=== PATIENT | male | born 1990 | race Caucasian/White ===

== ENCOUNTER 2023-06-18 12:30 | Emergency (ER) | payer MEDICAID, SELFPAY ==
[2023-06-18 13:50] VITALS: BP 144/91; PULSE 77; RESP 20; TEMP 36.6; O2SAT 98
--- NOTE | 2023-06-18 14:44 | ED.GENADULT ---
HPI - General Adult General Chief complaint: Nausea/Vomiting/Diarrhea Stated complaint: Sinus Source: patient Mode of arrival: ambulatory Limitations: no limitations History of Present Illness HPI narrative: Pt presents for evaluation of sick symptoms since yesterday. He initially had hot flashes, nausea, vomiting, generalized body aches. Those symptoms have subsided. Today he reports a runny nose and sore throat. No recent sick contacts to his knowledge. He uses marijuana but not cigarettes. He took some OTC cough and cold medicine for his symptoms. Related Data Home Medications Medication Instructions Recorded Confirmed amlodipine 10 mg tablet 10 mg PO DAILY 06/18/23 06/18/23 citalopram 20 mg tablet 20 mg PO DAILY 06/18/23 06/18/23 Allergies Allergy/AdvReac Type Severity Reaction Status Date / Time Penicillins Allergy Mild Hives / Verified 06/18/23 13:55 Red Face Review of Systems Review of Systems: CONSTITUTIONAL: Denies fever, chills, or sweats. EYES: Denies visual changes, redness, or discharge. ENT: Reports runny nose and sore throat CARDIOVASCULAR: Denies chest pain, palpitations, or edema. RESPIRATORY: Denies cough or dyspnea. GASTROINTESTINAL: Denies abdominal pain, nausea, vomiting, or diarrhea. GENITOURINARY: Denies dysuria or hematuria. SKIN: Denies rash or itching. MUSCULOSKELETAL: Denies back pain, joint pain, or myalgia. NEUROLOGIC: Denies headache, numbness, dizziness, or weakness. PSYCHIATRIC: Denies anxiety or depression. PMFSH Past Medical History Medical History Anxiety Hypertension Surgical History Surgical History No pertinent past surgical history Family History Family History Mother Family history non-contributory Social History Social History Substance use: current Substance use type: marijuana Living arrangements: alone Gender identity (if verbalized by the patient): Male Spiritual care concerns: No Exam Narrative: GENERAL: Well-appearing, well-nourished, and in no acute distress. HEAD: Normocephalic, atraumatic. EYES: PERRLA and EOMI. ENT: Nares clear, no rhinorrhea or epistaxis. Mucous membranes moist. Oropharynx without tonsillar hypertrophy exudate or other lesions. Bilateral TMs pearly workman nonbulging NECK: Supple. No adenopathy or masses. No carotid bruits or JVD CHEST: Clear to auscultation. No respiratory distress. No wheezes rales or rhonchi HEART: Regular rate and rhythm. No murmur heard. Normal peripheral pulses. ABDOMEN: Soft, nontender, nondistended, normal active bowel sounds. EXTREMITIES: Normal range of motion. No edema. SKIN: Warm, dry, no rash. NEURO: No focal deficits. Alert and oriented x3. PSYCH: Normal mood and affect. Course Course Emergency Course: This is a 32-year-old male who presented for evaluation of sick symptoms. COVID positive. Advised on supportive care measures. Quarantine in alignment with CDC recommendations. Follow-up with primary provider. Go to the ER for worsening symptoms. Patient in agreement with plan of care. Level of Care: Express Care Visit Vital Signs Vital signs: Vital Signs Temperature 36.6 C 06/18/23 13:50 Pulse Rate 77 06/18/23 13:50 Respiratory Rate 20 06/18/23 13:50 Blood Pressure 144/91 H 06/18/23 13:50 Pulse Oximetry 98 06/18/23 13:50 Oxygen Delivery Room Air 06/18/23 13:50 Temperature 36.6 C 06/18/23 13:50 Pulse Rate 77 06/18/23 13:50 Respiratory Rate 20 06/18/23 13:50 Blood Pressure 144/91 H 06/18/23 13:50 Pulse Oximetry 98 06/18/23 13:50 Oxygen Delivery Room Air 06/18/23 13:50 Medical Decision Making Vital Signs Vital Signs: Vital Signs Temperature 36.6 C 06/18/23
== END 2023-06-18 14:44 | disposition home or self-care (01) ==
PROVIDERS: Emergency Provider Nurse Practitioner; PCP Physician Assistant
DX: U07.1 COVID-19 (principal); I10 Essential (primary) hypertension; F41.9 Anxiety disorder, unspecified; F12.90 Cannabis use, unspecified, uncomplicated
CPT/HCPCS: 87426; 87804; 99213; G0463

== ENCOUNTER 2023-09-01 14:06 | Emergency (ER) | payer OTHER, SELFPAY ==
[2023-09-01 14:26] VITALS: BP 132/84; PULSE 68; RESP 16; TEMP 37.4; O2SAT 98
--- NOTE | 2023-09-01 15:02 | ED.NAVMDI ---
HPI - Nausea/Vomiting/Diarrhea General Chief complaint: Nausea/Vomiting/Diarrhea Stated complaint: vomiting,diarrhea Time Seen by Provider: 09/01/23 15:02 Source: patient Mode of arrival: ambulatory Limitations: no limitations History of Present Illness HPI Narrative: 32-year-old male presents with complaint of nausea and vomiting the past 3 mornings. Patient states that he feels better throughout the day. Thinks that nausea and vomiting may be related to his anxiety and depression. Patient called his primary care physician to discuss changes to his medications but did not have an appointment available. Patient to Urgent Care today needing work note due to the nausea and vomiting. Patient reports that he recently from his girlfriend and is having a hard time coping with it. Wanted his primary care to make changes to his medications to better treat his depression. Patient denies SI, HI. Patient is alert and talkative. Tearful at times. All systems reviewed and negative except as noted above. Related Data Home Medications Medication Instructions Recorded Confirmed amlodipine 10 mg tablet 10 mg PO DAILY 06/18/23 09/01/23 citalopram 20 mg tablet 20 mg PO DAILY 06/18/23 09/01/23 Allergies Allergy/AdvReac Type Severity Reaction Status Date / Time Penicillins Allergy Mild Hives / Verified 09/01/23 14:38 Red Face Review of Systems Review of Systems: CONSTITUTIONAL: Denies fever, chills, or sweats. EYES: Denies visual changes, redness, or discharge. ENT: Denies rhinorrhea, congestion, sore throat, or otalgia. CARDIOVASCULAR: Denies chest pain, palpitations, or edema. RESPIRATORY: Denies cough or dyspnea. GASTROINTESTINAL: Denies abdominal pain . Reports nausea, vomiting. Deniesdiarrhea. GENITOURINARY: Denies dysuria or hematuria. SKIN: Denies rash or itching. MUSCULOSKELETAL: Denies back pain, joint pain, or myalgia. NEUROLOGIC: Denies headache, numbness, or weakness. PSYCHIATRIC: reports anxiety and depression. All other systems reviewed are negative, except as documented in HPI. [facility] Past Medical History Medical History Anxiety Hypertension Surgical History Surgical History No pertinent past surgical history Family History Family History Mother Family history non-contributory Social History Social History Substance use: current Substance use type: marijuana Living arrangements: alone Gender identity (if verbalized by the patient): Male Spiritual care concerns: No Comments At time of signature, agree with nursing past medical, surgical, social and family history. There is no relevant family history pertinent to the presenting complaint. Exam Narrative: GENERAL: This is a well-nourished, well-developed patient, in no apparent distress. HEAD: normocephalic, atraumatic. EYES: PERRL. Sclera clear/white. Vision is grossly intact. EARS: External ears normal NOSE: External nose normal NECK: Neck supple, non-tender without lymphadenopathy, masses or thyromegaly. CARDIOVASCULAR: Regular rate and rhythm without murmurs, gallops, or rubs. RESPIRATORY: Clear to auscultation. Breath sounds equal bilaterally. No wheezes, rales, or rhonchi. GASTROINTESTINAL: Abdomen soft, non-tender, nondistended. Bowel sounds are active. No hepato-splenomegaly, or palpable masses. No guarding. SKIN: warm, Dry, intact with no suspicious lesions or rash, good texture and turgor. NEURO: awake, alert, and oriented to person, place and time. There were no obvious focal neurologic abnormalities. EXTREMITIES: No joint tenderness, effusion, or edema noted. Course Course Level of Care: Express Care Visit Vital Signs Vital signs: Vital Signs Temp
== END 2023-09-01 15:30 | disposition home or self-care (01) ==
PROVIDERS: Emergency Provider Nurse Practitioner Family; PCP Physician Assistant
DX: R11.2 Nausea with vomiting, unspecified (principal); F32.A Depression, unspecified; Z20.822 Contact with and (suspected) exposure to COVID-19; F12.90 Cannabis use, unspecified, uncomplicated; F41.9 Anxiety disorder, unspecified; I10 Essential (primary) hypertension
CPT/HCPCS: 87426; 87804; 99213; G0463

== ENCOUNTER 2023-10-17 11:44 | Outpatient (CLI) | payer OTHER, SELFPAY ==
[2023-10-17 12:18] LABS: Alanine Aminotransferase 22 U/L (6-50); Albumin Level 4.8 g/dL (3.5-5.1); Alkaline Phosphatase 58 U/L (38-126); Anion Gap 7 mmol/L (4-12); Aspartate Amino Transferase 24 U/L (17-59); Bilirubin,Total 0.6 mg/dL (0.2-1.3); Blood Urea Nitrogen 13 mg/dL (9-20); Carbon Dioxide 29 mmol/L (22-30); Chloride 105 mmol/L (98-107); Cholesterol 224 mg/dL (0-200); Estimated Glomerular Filt Rate > 60; Glucose 109 mg/dL (65-110); HDL Direct 29 mg/dL; Potassium 3.8 mmol/L (3.4-5.0); Sodium 141 mmol/L (137-145); Triglycerides 270 mg/dL (<150)
[2023-10-17 12:29] LABS: LDL Cholesterol Direct 151 mg/dL
== END 2023-10-17 11:45 | disposition home or self-care (01) ==
LOC: ANHLAB 11:46
PROVIDERS: PCP Physician Assistant; Visit Provider Internal Medicine Cardiovascular Disease
DX: I10 Essential (primary) hypertension (principal)
CPT/HCPCS: 36415; 80053; 80061; 84443

== ENCOUNTER 2024-02-18 16:20 | Emergency (ER) | payer OTHER, SELFPAY ==
[2024-02-18 16:28] VITALS: BP 139/75; PULSE 69; RESP 16; TEMP 36.4; O2SAT 99
[2024-02-18 16:59] LABS: Glucose Point of Care 106 mg/dl (65-105)
[2024-02-18 17:24] LABS: EDCOVIDSCREEN Negative (Negative); EDINFLUASCREEN Negative (Negative); EDINFLUBSCREEN Negative (Negative)
--- NOTE | 2024-02-18 17:32 | ED.GENADULT ---
HPI - General Adult General Chief complaint: Nausea/Vomiting/Diarrhea Stated complaint: Nausea Source: patient Mode of arrival: ambulatory Limitations: no limitations History of Present Illness HPI narrative: Patient presents for evaluation nausea, vomiting, and diarrhea. He states his symptoms started one week ago. He left work at that time. He went into work today and had an episode of vomiting. He left work and came here to get a work excuse. He denies any abdominal pain. He has some abdominal cramping earlier this week. He had a solid bowel movement today. No fevers, chills, blood or mucus in the stool. No recent sick contacts to his knowledge. He reports a burning sensation in his epigastric region. Related Data Home Medications Medication Instructions Recorded Confirmed amlodipine 10 mg tablet 10 mg PO DAILY 06/18/23 02/18/24 citalopram 20 mg tablet 20 mg PO DAILY 06/18/23 02/18/24 Allergies Allergy/AdvReac Type Severity Reaction Status Date / Time Penicillins Allergy Mild Hives / Verified 02/18/24 16:30 Red Face Review of Systems Review of Systems: CONSTITUTIONAL: Denies fever, chills, or sweats. EYES: Denies visual changes, redness, or discharge. ENT: Denies rhinorrhea, congestion, sore throat, or otalgia. CARDIOVASCULAR: Denies chest pain, palpitations, or edema. RESPIRATORY: Denies cough or dyspnea. GASTROINTESTINAL: reports recent diarrhea, now resolved. Reports nausea and vomiting. Denies abdominal pain. GENITOURINARY: Denies dysuria or hematuria. SKIN: Denies rash or itching. MUSCULOSKELETAL: Denies back pain, joint pain, or myalgia. NEUROLOGIC: Denies headache, numbness, dizziness, or weakness. PSYCHIATRIC: Denies anxiety or depression. [facility] Past Medical History Medical History Anxiety Hypertension Surgical History Surgical History No pertinent past surgical history Family History Family History Mother Family history non-contributory Social History Social History Smoking status: Never smoker Substance use: current Substance use type: marijuana Living arrangements: alone Gender identity (if verbalized by the patient): Male Spiritual care concerns: No Exam Narrative: GENERAL: Well-appearing, well-nourished, and in no acute distress. HEAD: Normocephalic, atraumatic. EYES: PERRLA and EOMI. ENT: Nares clear, no rhinorrhea or epistaxis. Mucous membranes moist. Oropharynx without tonsillar hypertrophy exudate or other lesions. Bilateral TMs pearly workman nonbulging NECK: Supple. No adenopathy or masses. No carotid bruits or JVD CHEST: Clear to auscultation. No respiratory distress. No wheezes rales or rhonchi HEART: Regular rate and rhythm. No murmur heard. Normal peripheral pulses. ABDOMEN: Soft, nontender, nondistended, normal active bowel sounds. EXTREMITIES: Normal range of motion. No edema. SKIN: Warm, dry, no rash. NEURO: No focal deficits. Alert and oriented x3. PSYCH: Normal mood and affect. Course Course Emergency Course: This is a 33-year-old male who presented for evaluation nausea, vomiting, and recent diarrhea which has since resolved. He would like a note to excuse him from work today. He is nontoxic appearing. I did offer to send him to the emergency department for lab work. He declined. He has no abdominal tenderness so I think this is reasonable. Will discharge with pepcid and zofran. Follow up with primary care provider and go to the ER for worsening or recurrent symptoms. Pt in agreement with plan of care. Level of Care: Express Care Visit Vital Signs Vital signs: Vital Signs Temperature 36.4 C 02/18/24 16:28 Pulse Rate 69 02/18/24 16:28 Respiratory Rate 16
== END 2024-02-18 17:33 | disposition home or self-care (01) ==
PROVIDERS: Emergency Provider Nurse Practitioner; PCP Physician Assistant
DX: B34.9 Viral infection, unspecified (principal); Z20.822 Contact with and (suspected) exposure to COVID-19; F12.90 Cannabis use, unspecified, uncomplicated; F41.9 Anxiety disorder, unspecified; I10 Essential (primary) hypertension
CPT/HCPCS: 82948; 87426; 87804; 99213; G0463

== ENCOUNTER 2024-03-02 19:29 | Emergency (ER) | payer OTHER, SELFPAY ==
[2024-03-02 19:37] VITALS: BP 157/96; PULSE 72; RESP 16; TEMP 36.4; O2SAT 99
[2024-03-02 19:39] VITALS: BP 157/96; PULSE 72; RESP 16; TEMP 36.4; O2SAT 99
--- NOTE | 2024-03-02 19:43 | ED.GENADULT ---
HPI - General Adult General Chief complaint: Unspecified Stated complaint: tingling feeling in brain,dizzy,lightheaded Time Seen by Provider: 03/02/24 19:44 Source: patient, RN notes reviewed and old records reviewed Mode of arrival: ambulatory Limitations: no limitations History of Present Illness HPI narrative: Patient with history of hypertension and anxiety presents today with complaints of ?brain tingling?. Upon further questioning, he shares that his brain feels like his foot does want falls asleep. He reports feeling dizzy and lightheaded. He states symptoms began yesterday. He denies all injury and trauma, including head trauma. Denies any falls as results of his symptoms. States that he has been taking medicine properly, blood pressure is elevated on arrival. He denies any pain, including chest pain. Denies any shortness of breath Related Data Home Medications Medication Instructions Recorded Confirmed amlodipine 10 mg tablet 10 mg PO DAILY 06/18/23 03/02/24 citalopram 20 mg tablet 20 mg PO DAILY 06/18/23 03/02/24 citalopram 10 mg tablet 10 mg PO DAILY 03/02/24 03/02/24 Allergies Allergy/AdvReac Type Severity Reaction Status Date / Time Penicillins Allergy Mild Hives / Verified 03/02/24 19:38 Red Face Review of Systems Review of Systems: All systems reviewed & are unremarkable except as noted in HPI and below Constitutional: Constitutional: Reports as per HPI and Reports no additional constitutional complaints ENT: Reports system reviewed and no additional complaints, except as documented Cardiovascular: Cardiovascular: Reports no additional cardiovascular complaints Respiratory: Respiratory: Reports no additional respiratory complaints Gastrointestinal: Gastrointestinal: Reports no additional gastrointestinal complaints Neurologic: Reports system reviewed and no additional complaints, except as documented, Reports as per HPI and Reports dizziness PMFSH Past Medical History Medical History Anxiety Hypertension Surgical History Surgical History No pertinent past surgical history Family History Family History Mother Family history non-contributory Social History Social History Smoking status: Never smoker Substance use: current Substance use type: marijuana Living arrangements: alone Gender identity (if verbalized by the patient): Male Spiritual care concerns: No Comments At the time of my signature, I reviewed and agree with the nursing past medical, surgical, social, and family history. There is no relevant family history pertinent to the patient complaint. Exam Const: General: cooperative, no acute distress, alert and awake Nutritional Appearance: obese Orientation/consciousness: oriented to person, oriented to place and oriented to time HENMT: Head: normal to inspection Eyes: Pupils: Equal, round and reactive pupils present EOM: EOMs intact bilaterally Resp: Effort & Inspection: normal respiratory effort and able to speak in complete sentences Auscultation: clear to auscultation bilaterally, no crackles, no rales, no rhonchi and no wheezes Cardio: Palpation: normal PMI Rate: regular rate Rhythm: regular rhythm Heart sounds: S1 normal heart sound present and S2 normal heart sound present Neuro: General: oriented to person, oriented to place and oriented to time Cranial nerves: Yes CN's II-XII intact bilaterally Psych: Appearance: grossly normal Thought process: Normal thought process present Insight: Good insight present (Psych) Judgement: Good judgement present (Psych) Course Course Level of Care: Express Care Visit Vital Signs Vital signs: Vital Signs Temperature 97.6 F 03/02/24 19:37 Pulse Rate 72 03/02/24 1
[2024-03-02 19:53] LABS: Glucose Point of Care 98 mg/dl (65-105)
== END 2024-03-02 19:55 | disposition short-term general hospital (02) ==
PROVIDERS: Emergency Provider Nurse Practitioner Family; PCP Physician Assistant
DX: R42 Dizziness and giddiness (principal); I10 Essential (primary) hypertension; F41.9 Anxiety disorder, unspecified
CPT/HCPCS: 82948; 99212; G0463

== ENCOUNTER 2024-04-12 16:26 | Emergency (ER) | payer OTHER, SELFPAY ==
[2024-04-12 16:35] VITALS: BP 154/93; PULSE 81; RESP 16; TEMP 36.4; O2SAT 99
--- NOTE | 2024-04-12 16:57 | ED_ITS ---
HPI - URI/Sore Throat General Chief Complaint: Upper Respiratory Infection Stated Complaint: sore throat, congested Time Seen by Provider: 04/12/24 16:58 Source: patient Mode of arrival: ambulatory Limitations: no limitations History of Present Illness HPI Narrative: 33-year-old male presents with complaint of nasal congestion, sore throat, drainage, cough, fatigue for 1 week. Reports sinus pressure and sinus headaches. Taking libm-vnq-ayogisy [employer] brand sinus medication without relief of symptoms. No chest pain or shortness of breath. Denies nausea vomiting diarrhea. All systems reviewed and negative except as noted above. Related Data Home Medications Medication Instructions Recorded Confirmed amlodipine 10 mg tablet 10 mg PO DAILY 06/18/23 03/02/24 citalopram 20 mg tablet 20 mg PO DAILY 06/18/23 03/02/24 citalopram 10 mg tablet 10 mg PO DAILY 03/02/24 03/02/24 Allergies Allergy/AdvReac Type Severity Reaction Status Date / Time Penicillins Allergy Mild Hives / Verified 03/02/24 19:38 Red Face Review of Systems Review of Systems: CONSTITUTIONAL: Denies fever, chills, or sweats. reports fatigue. EYES: Denies visual changes, redness, or discharge. ENT: Reports rhinorrhea, congestion, sinus pressure, sore throat, bilateral otalgia. CARDIOVASCULAR: Denies chest pain, palpitations, or edema. RESPIRATORY: Reports cough. Denies dyspnea. GASTROINTESTINAL: Denies abdominal pain, nausea, vomiting, or diarrhea. GENITOURINARY: Denies dysuria or hematuria. SKIN: Denies rash or itching. MUSCULOSKELETAL: Denies back pain, joint pain, or myalgia. NEUROLOGIC: Denies headache, numbness, or weakness. PSYCHIATRIC: Denies anxiety or depression. All other systems reviewed are negative, except as documented in HPI. [facility] Past Medical History Medical History Anxiety Hypertension Surgical History Surgical History No pertinent past surgical history Family History Family History Mother Family history non-contributory Social History Social History (Reviewed 03/03/24 @ 08:08 by JUDE Chamberlain Smoking status: Never smoker Substance use: current Substance use type: marijuana Living arrangements: alone Gender identity (if verbalized by the patient): Male Spiritual care concerns: No Comments At time of signature, agree with nursing past medical, surgical, social and family history. There is no relevant family history pertinent to the presenting complaint. Exam Narrative: GENERAL: This is a well-nourished, well-developed patient, in no apparent distress. HEAD: normocephalic, atraumatic. EYES: PERRL. Sclera clear/white. Vision is grossly intact. EARS: External ears normal, auditory canals clear and without drainage, right TM is erythematous and retracted, left TM is normal without perforation. Hearing grossly intact. NOSE: External nose normal with purulent nasal drainage, mild congestion, left maxillary sinus tenderness on palpation THROAT: Mucous membranes moist, erythema with postnasal drainage NECK: Neck supple, non-tender without lymphadenopathy, masses or thyromegaly. CARDIOVASCULAR: Regular rate and rhythm without murmurs, gallops, or rubs. RESPIRATORY: Clear to auscultation. Breath sounds equal bilaterally. No wheezes, rales, or rhonchi. SKIN: warm, Dry, intact with no suspicious lesions or rash, good texture and turgor. NEURO: awake, alert, and oriented to person, place and time. There were no obv ious focal neurologic abnormalities. EXTREMITIES: No joint tenderness, effusion, or edema noted. Course Course Level of Care: Express Care Visit Vital Signs Vital signs: Vital Signs Temperature 36.4 C 04/12/24 16:35 Pulse Rate 81 04/12/24 16:35 Respiratory Rate 16 04/12/24 16:35 Blood Pressure 154/93 H 04/12/24 16:35 Pulse Oximetry 99 04/12/24 16:35 Oxygen Delivery Room Air 04/12/24 16:35 Temperature 36.4 C 04/12/24 16:35 Pulse Rate 81 04/12/24 16:35 Respiratory Rate 16 04/12/24 16:35 Blood Pressure 154/93 H 04/12/24 16:35 Pulse Oximetry 99 04/12/24 16:35 Oxygen Delivery Room Air 04/12/24 16:35 reviewed MDM - URI/Sore Throat MDM Narrative Medical decision making narrative: prescribing cefdinir for right otitis media due to amoxicillin allergy. Negative COVID, influenza and strep test. Patient is aware of diagnosis, understands and agrees to treatment plan. Anticipatory guidance given. Patient agrees to follow-up as directed and is aware of reasons to seek care at the emergency department. Portions of this record may have been created with voice recognition software Differential Diagnosis Differential diagnosis: Likely upper respiratory infection, otitis media, sinusitis and pharyngitis Discharge Plan Discharge Clinical Impression: Acute right otitis media, Acute sinusitis Patient Disposition: Home, Self-Care Condition: Stable Instructions: Antibiotic Form, Sinusitis (ED) Additional Instructions: take medications as prescribed. Take Tylenol or ibuprofen every 6-8 hours as needed for pain and fever. Drink at least 64 oz of water a day. Follow-up with your doctor if symptoms are not improving. Prescriptions: New benzonatate 200 mg capsule 200 mg PO TID PRN (Reason: cough) Qty: 20 0RF methylprednisolone [Medrol ([place])] 4 mg tablets,dose pack See Rx Instructions PO .COMPLEX Qty: 21 0RF Rx Instructions: orally per package directions fluticasone propionate [Flonase Allergy Relief] 50 mcg/actuation spray,suspension 1 spray intranasal BID Qty: 16 0RF Rx Instructions: administer into each nostril loratadine [Claritin] 10 mg tablet 10 mg PO DAILY Qty: 30 0RF cefdinir 300 mg capsule 300 mg PO Q12H 10 Days Qty: 20 0RF No Action citalopram 20 mg tablet 20 mg PO DAILY amlodipine 10 mg tablet 10 mg PO DAILY citalopram 10 mg tablet 10 mg PO DAILY Follow-up/Referrals: Amy,JOSE ALEJANDRO Mcintyre [Primary Care Provider] - Stand Alone Forms: Work/School Release IP Time of Disposition: 16:56
[2024-04-15 10:02] LABS: EDCOVIDSCREEN Negative (Negative)
[2024-04-15 10:02] LABS: EDINFLUASCREEN Negative (Negative); EDINFLUBSCREEN Negative (Negative)
[2024-04-15 10:02] LABS: EDSTREPNEGPOS1 Negative (Negative)
== END 2024-04-12 17:00 | disposition home or self-care (01) ==
PROVIDERS: Emergency Provider Nurse Practitioner Family; PCP Physician Assistant
DX: H66.91 Otitis media, unspecified, right ear (principal); J01.90 Acute sinusitis, unspecified; Z20.822 Contact with and (suspected) exposure to COVID-19; F12.90 Cannabis use, unspecified, uncomplicated; I10 Essential (primary) hypertension; F41.9 Anxiety disorder, unspecified
CPT/HCPCS: 87081; 87426; 87635; 87804; 87880; 99213; G0463

== ENCOUNTER 2024-12-21 16:35 | Emergency (ER) | payer OTHER, SELFPAY ==
[2024-12-21] VITALS (24 sets, daily range): BP systolic 135–179; BP diastolic 72–105; PULSE 61–92; RESP 11–30; TEMP 36.2–36.7; O2SAT 93–100
--- NOTE | ~2024-12-21 | XR_ITS ---
EXAMINATION: XR chest 2V Exam Date/Time: 12/21/2024 17:25 CDT HISTORY: chest pain Comparison: 12/14/2018. RESULT: Lines, tubes, and devices: None. Lungs and pleura: Clear. Cardiomediastinal silhouette: Stable. Other: No acute osseous or upper abdominal finding. IMPRESSION: No acute cardiopulmonary process. Reviewed, dictated and finalized at location K.
--- NOTE | 2024-12-21 16:37 | ECG_ITS ---
Test Date: 2024-12-21 16:45:23 Measurements Intervals Griffin Rate: 72 P: 40 MI: 165 QRS: 26 QRSD: 89 T: 3 QT: 349 QTc: 384 Interpretive Statements SINUS RHYTHM No previous ECG available for comparison Electronically Signed On 12-22-2024 14:14:41 CDT by Braden Holman M.D.
--- OUTSIDE RECORDS SUMMARY | 2024-12-21 16:38 | XMS_ITS | Clinical Summary ---
Author Organization [facility] Address [address] [place] [address] Phone Care Team Providers Care Cross Tie Turner Name Role Phone Unavailable Primary Care Provider Unavailabl e Social History Tobacco Use Types Packs/Day Years Used Date Smoking Tobacco: Never Assessed Sex and Gender Information Value Date Recorded Sex Assigned at Not on file Legal Sex Male 9:10 AM CDT Gender Identity Not on file Sexual Orientation Not on file Plan of Treatment Health Maintenance Due Date Last Done Comments Hepatitis C Virus (HCV) Screening 1990 TdaP Immunization 1990 Human Papillomavirus (HPV) Immunization (1 - Male 3-dose series) 2005 Hepatitis B Immunization (1 of 3 - 19+ 3-dose series) 2009 SARS-COV-2 Immunization ( season) 2024 Influenza Immunization (#1) 2025 Respiratory Syncytial Virus (RSV) Immunization (Adult) (1 - 1-dose 75+ series) 2065 DTaP/Tdap/Td Immunization Discontinued 10/13/1994 Meningococcal Immunization (ACWY) Aged Out No longer eligible based on patient's age to complete this topic Pneumococcal Immunization Combined Aged Out No longer eligible based on patient's age to complete this topic Rotavirus Immunization Aged Out No lo nger eligible based on patient's age to complete this topic Insurance MEDICAID [employer]
[2024-12-21 17:43] LABS: Hematocrit 43.7 % (42.0-52.0); Hemoglobin 14.1 g/dL (14.0-18.0); Immature Granulocyte Percent A 0.4 % (0-0.5); Lymphocytes Absolute Auto 2.01 K/mm3 (0.9-3.2); Mean Corpuscular HGB Conc 32.3 g/dl (32-36); Mean Corpuscular Hemoglobin 27.6 pg (26-34); Mean Corpuscular Volume 85.7 fl (80-100); Nucleated Red Blood Cells Absolute Auto 0.000 K/mm3 (0.0-0.012); Nucleated Red Blood Cells Perc 0.0 % (0.0-0.2); Platelet Count Result 177 k/mm3 (150-375); Red Blood Count 5.10 M/mm3 (4.6-6.20); White Blood Count 6.9 K/mm3 (4.5-10.0)
[2024-12-21] MEDS: ASPIRIN 81 MG CHEWABLE TABLET 324 MG PO (17:46)
[2024-12-21 17:57] LABS: INR 1.0; Prothrombin Time 13.0 Seconds (11.1-14.7)
[2024-12-21 17:58] LABS: Partial Thromboplastin Time 27.5 Seconds (22.3-36.8)
--- OUTSIDE RECORDS SUMMARY | 2024-12-21 17:59 | XMS_ITS | Clinical Summary ---
Author Organization [facility] Address [address] [place] [address] Phone Care Team Providers Care Collar Padder Blindstitch Name Role Phone Unavailable Primary Care Provider [...]
[2024-12-21 18:13] LABS: Alanine Aminotransferase 25 U/L (6-50); Albumin Level 4.5 g/dL (3.5-5.1); Alkaline Phosphatase 50 U/L (38-126); Anion Gap 6 mmol/L (4-12); Aspartate Amino Transferase 25 U/L (17-59); Bilirubin,Total 0.3 mg/dL (0.2-1.3); Blood Urea Nitrogen 9 mg/dL (9-20); Carbon Dioxide 25 mmol/L (22-30); Chloride 103 mmol/L (98-107); Estimated CRCL calculation 156 ml/min; Estimated Glomerular Filt Rate > 60; Lipase 116 U/L (23-300); Potassium 4.2 mmol/L (3.4-5.0); Sodium 134 mmol/L (137-145); Total Protein 7.5 g/dL (6.3-8.2)
--- NOTE | 2024-12-21 18:13 | ED_ITS ---
HPI - Chest Pain General Chief Complaint: Chest Pain Stated Complaint: cp this am Time Seen by Provider: 12/21/24 16:58 Source: patient and RN notes reviewed Mode of arrival: ambulatory Limitations: no limitations History of Present Illness HPI narrative: 34 y/o WM in the ED for c/o CP since this am. PMH of HTN and anxiety. Pt states he was woken up with non-radiating substernal CP. Pt states he initially thought it was anxiety. [place] and noted pain was worse and become nauseous. Pt states pain felt different than anxiety related CP, and came to ED for evaluation. Pt denies taking anything for CP or nausea. Pt states father had an [place] in his late 40s, early 50s. Denies DM or other coronary hx. Denies SOB, diaphoresis. Related Data Home Medications ?Medication ?Instructions ?Recorded ?Confirmed ?Last Taken ?Type amlodipine 10 mg tablet 10 mg PO DAILY 06/18/23 03/02/24 Unknown History citalopram 20 mg tablet 20 mg PO DAILY 06/18/23 03/02/24 Unknown History citalopram 10 mg tablet 10 mg PO DAILY 03/02/24 03/02/24 Unknown History Allergies Allergy/AdvReac Type Severity Reaction Status Date / Time Penicillins Allergy Mild Hives / Verified 12/21/24 16:47 Red Face Review of Systems 2 Review of Systems: CONSTITUTIONAL: Denies fever, chills, or sweats. EYES: Denies visual changes, redness, or discharge. ENT: Denies rhinorrhea, congestion, sore throat, or otalgia. CARDIOVASCULAR: Endorses chest pain. Denies palpitations, or edema. RESPIRATORY: Denies cough or dyspnea. GASTROINTESTINAL: Endorses nausea. Denies abdominal pain, vomiting, or diarrhea. GENITOURINARY: Denies dysuria or hematuria. SKIN: Denies rash or itching. MUSCULOSKELETAL: Denies back pain, joint pain, or myalgia. NEUROLOGIC: Denies headache, numbness, or weakness. PSYCHIATRIC: Denies anxiety or depression. [facility] Past Medical History Medical History Anxiety Hypertension Surgical History Surgical History No pertinent past surgical history Family History Family History Mother Family history non-contributory Social History Social History Smoking status: Never smoker Substance use: current Substance use type: marijuana Living arrangements: alone Gender identity (if verbalized by the patient): Male Spiritual care concerns: No Exam 2 Narrative: GENERAL: Well-appearing, well-nourished, and in no acute distress. HEAD: Normocephalic, atraumatic. EYES: PERRLA and EOMI. ENT: Nares clear, no rhinorrhea or epistaxis. Mucous membranes moist. NECK: Supple. CHEST: Clear to auscultation. No respiratory distress. HEART: Regular rate and rhythm. No murmur heard. Normal peripheral pulses. ABDOMEN: Soft, nontender, nondistended, normal active bowel sounds. EXTREMITIES: Normal range of motion. No edema. SKIN: Warm, dry, no rash. NEURO: No focal deficits. Alert and oriented x3. PSYCH: Normal mood and affect. Course Vital Signs Vital signs: Vital Signs Temperature 36.2 C L 12/21/24 16:40 Pulse Rate 78 12/21/24 16:40 Respiratory Rate 22 H 12/21/24 16:40 Blood Pressure 159/103 H 12/21/24 16:40 Pulse Oximetry 99 12/21/24 16:40 Oxygen Delivery Room Air 12/21/24 16:40 Temperature 36.7 C 12/21/24 17:49 Pulse Rate 77 12/21/24 17:49 Respiratory Rate 18 12/21/24 17:49 Blood Pressure 179/95 H 12/21/24 17:49 Pulse Oximetry 99 12/21/24 17:49 Oxygen Delivery Room Air 12/21/24 17:49 MDM - Chest Pain MDM Narrative Medical decision making narrative: HPI: 34 y/o WM in the ED for c/o CP since this am. PMH of HTN and anxiety. Pt states he was woken up with non-radiating substernal CP. Pt states he initially thought it was anxiety. Pt [place] and noted pain was worse and become nauseous. Pt states pain felt different than anxiety related CP, and came to ED for evaluation. Pt denies taking anything for CP or nausea. Pt states father had an [place] in his late 40s, early 50s. Denies DM or other coronary hx. Denies SOB, diaphoresis. My Plan Labs Ordered: CBC, CMP, troponin, lipase, PT/PTT Imaging Ordered: EKG, chest x-ray Medications Ordered: 324 mg chewable aspirin Results: CBC and CMP unremarkable, coags negative, lipase negative, 1st troponin negative. EKG normal sinus rhythm with a rate of 72. X-ray normal per radiologist read. No changes on secondary EKG. Second troponin also negative. Diagnosis: Chest pain Risks: HEART score, PECARN score, CURB-65 score Consults: Labs, EKG, x-ray obtained. All as of 1899 are within normal limits. Physical exam was unremarkable. Will trend in additional troponin and if negative will release home, for further evaluation by primary care with possible Cardiology referral. Chest pain has resolved. 2nd EKG and troponin all negative or within normal limits. Will discharge patient at this time with primary care follow-up. Differential Diagnosis Differential diagnosis: Likely stable angina, atypical chest pain, st elevation myocardial infarction, costochondritis, chest pain and biliary colic Medical Records Data Attestation: I reviewed the patient's medical records. Lab Data Attestation: I reviewed the patient's lab results. 12/21/24 17:37 12/21/24 17:37 Labs: Lab Results 12/21/24 12/21/24 Range/Units 17:37 19:44 WBC 6.9 (4.5-10.0) K/mm3 RBC 5.10 (4.6-6.20) M/mm3 Hgb 14.1 (14.0-18.0) g/dL Hct 43.7 (42.0-52.0) % MCV 85.7 (80-100) fl MCH 27.6 (26-34) pg MCHC 32.3 (32-36) g/dl RDW 14.3 (11.5-14.5) % Plt Count 177 (150-375) k/mm3 MPV 11.9 H (7.4-10.4) fl Immature Gran % (Auto) 0.4 (0-0.5) % Neut % (Auto) 61.6 (45.5-73.1) % Lymph % (Auto) 29.0 (18.3-44.2) % [place] % (Auto) 6.6 (2.6-8.5) % Eos % (Auto) 1.4 (0-4.4) % Baso % (Auto) 1.0 (0.2-1.2) % Lymph # (Auto) 2.01 (0.9-3.2) K/mm3 [place] # (Auto) 0.5 (0.1-0.6) K/mm3 Eos # (Auto) 0.1 (0-0.3) K/mm3 Baso # (Auto) 0.1 (0.0-0.1) K/mm3 Abs Immat Gran (auto) 0.03 (0.00-0.031) K/mm3 Absolute Neuts (auto) 4.3 (1.3-6.7) K/mm3 Absolute Nucleated RBC 0.000 (0.0-0.012) K/mm3 Nucleated RBC % 0.0 (0.0-0.2) % PT 13.0 (11.1-14.7) Seconds INR 1.0 APTT 27.5 (22.3-36.8) Seconds Sodium 134 L (137-145) mmol/L Potassium 4.2 (3.4-5.0) mmol/L Chloride 103 (98-107) mmol/L Carbon Dioxide 25 (22-30) mmol/L Anion Gap 6 (4-12) mmol/L BUN 9 (9-20) mg/dL Creatinine 0.86 (0.7-1.3) mg/dL Estim Creat Clear Calc 156 ml/min Estimated GFR > 60 (59 - ) Glucose 90 (65-110) mg/dL Calcium 9.5 (8.4-10.2) mg/dL Total Bilirubin 0.3 (0.2-1.3) mg/dL AST 25 (17-59) U/L ALT 25 (6-50) U/L Alkaline Phosphatase 50 (38-126) U/L Troponin I < 0.012 Pending (0.000-0.034) ng/mL Total Protein 7.5 (6.3-8.2) g/dL Albumin 4.5 (3.5-5.1) g/dL Lipase 116 (23-300) U/L Imaging Data Radiologist's impression: ITS Impressions Chest X-Ray 12/21/24 17:38 IMPRESSION: No acute cardiopulmonary process. ECG Data EKG #1: Attestation: I personally reviewed and interpreted this ECG as follows: ECG completion date: 12/21/24 ECG completion time: 16:45 Prior ECG tracings: available for review EKG Interpretation: normal rate, sinus rhythm, no ectopy, no ST changes, normal QRS and normal QT EKG #2: Attestation: I personally reviewed and interpreted this ECG as follows: ECG completion date: 12/21/24 ECG completion time: 19:41 Prior ECG tracings: available for review EKG Interpretation: normal rate, sinus rhythm, no ectopy, no ST changes, normal QRS, normal QT and no acute changes Discharge Plan Discharge Clinical Impression: Chest pain Qualifiers: Chest pain type: unspecified Qualified Code(s): R07.9 - Chest pain, unspecified Patient Disposition: Home Condition: Stable Instructions: Antibiotic Form, Chest Pain (ED) Additional Instructions: Please return to the ER with any worsening symptoms. ?Follow-up with primary care provider as soon as possible. ?Take all medications as prescribed, including regularly scheduled medications. Patient Language: Prydeinig Prescriptions: No Action citalopram 20 mg tablet 20 mg PO DAILY amlodipine 10 mg tablet 10 mg PO DAILY citalopram 10 mg tablet 10 mg PO DAILY benzonatate 200 mg capsule 200 mg PO TID PRN (Reason: cough) Qty: 20 0RF methylprednisolone [Medrol ([place])] 4 mg tablets,dose pack See Rx Instructions PO .COMPLEX Qty: 21 0RF Rx Instructions: orally per package directions fluticasone propionate [Flonase Allergy Relief] 50 mcg/actuation spray,suspension 1 spray intranasal BID Qty: 16 0RF Rx Instructions: administer into each nostril loratadine [Claritin] 10 mg tablet 10 mg PO DAILY Qty: 30 0RF cefdinir 300 mg capsule 300 mg PO Q12H 10 Days Qty: 20 0RF Follow-up/Referrals: Amy,JOSE ALEJANDRO Mcintyre [Primary Care Provider] - 1 Week Time of Disposition: 20:28
[2024-12-21 18:22] LABS: Troponin I < 0.012 ng/mL (0.000-0.034)
[2024-12-21 18:23] LABS: Calcium 9.5 mg/dL (8.4-10.2); Glucose 90 mg/dL (65-110)
--- NOTE | 2024-12-21 18:54 | PC.NURSE ---
Report received from JEANNE Branch. Assumed care of patient at this time.
--- NOTE | 2024-12-21 19:29 | ECG_ITS ---
Test Date: 2024-12-21 19:41:09 Measurements Intervals Raymond Rate: 68 P: 47 TN: 169 QRS: 18 QRSD: 92 T: -1 QT: 368 QTc: 394 Interpretive Statements SINUS RHYTHM Compared to ECG 12/21/2024 16:45:23 No significant changes Electronically Signed On 12-22-2024 14:19:41 CDT by Braden Holman M.D.
[2024-12-21 20:25] LABS: Troponin I < 0.012 ng/mL (0.000-0.034)
== END 2024-12-21 20:58 | disposition home or self-care (01) ==
PROVIDERS: Emergency Medicine; Emergency Provider Registered Nurse Emergency; PCP Physician Assistant
DX: R07.9 Chest pain, unspecified (principal); I10 Essential (primary) hypertension; F41.9 Anxiety disorder, unspecified; F12.90 Cannabis use, unspecified, uncomplicated
CPT/HCPCS: 36415; 71046; 80053; 83690; 84484; 85025; 85610; 85730; 93005; 99284; A9270

== ENCOUNTER 2025-03-20 15:53 | Emergency (ER) | payer OTHER, SELFPAY ==
[2025-03-20 16:04] VITALS: BP 136/89; PULSE 76; RESP 18; TEMP 36.6; O2SAT 99
--- NOTE | 2025-03-20 16:08 | ED.GENADULT ---
HPI - General Adult General Chief complaint: Upper Respiratory Infection Stated complaint: Sinus Time Seen by Provider: 03/20/25 16:10 Source: patient, RN notes reviewed and old records reviewed Mode of arrival: ambulatory Limitations: no limitations History of Present Illness HPI narrative: 34 year old male presents to [facility] care with complaints of illness since Monday night with scratchy throat, nasal congestion and drainage, stuffy nose and some cough. Patient reports that yesterday he did have some nausea and vomiting but that has resolved has history of Gerd. Patient reports no know fevers and no body aches. He reports that he needs note to go back to work on Monday and could not get appointment to see his PCP til Monday. MD complaint: scratchy sore throat, nasal congestion and stuffy nose, N&V X1 yesterday Onset (ago): day(s) (since Monday night 3 days) Severity: mild Quality: other (scratchy) Pain Consistency: intermittent Treatments prior to arrival: none Related Data Home Medications ?Medication ?Instructions ?Recorded ?Confirmed ?Last Taken ?Type amlodipine 10 mg tablet 10 mg PO DAILY 06/18/23 03/20/25 Unknown History citalopram 20 mg tablet 20 mg PO DAILY 06/18/23 03/20/25 Unknown History citalopram 10 mg tablet 10 mg PO DAILY 03/02/24 03/20/25 Unknown History atorvastatin 10 mg tablet mg 03/20/25 Unknown History Allergies Allergy/AdvReac Type Severity Reaction Status Date / Time Penicillins Allergy Mild Hives / Verified 03/20/25 15:54 Red Face Review of Systems Review of Systems: CONSTITUTIONAL: reports malaise, chills, sweats, or fever. EYES: Denies visual changes, redness, or discharge. ENT: Reports rhinorrhea, congestion, sinus pain,no otalgia and positive sore throat. CARDIOVASCULAR: Denies chest pain, palpitations, or edema. RESPIRATORY: Reports no cough.? Denies dyspnea. GASTROINTESTINAL: Denies abdominal pain, one episode of nausea, vomiting yesterday none today, no diarrhea SKIN: Denies rash or itching. MUSCULOSKELETAL: Denies myalgia. NEUROLOGIC: Denies headache. All systems reviewed & are unremarkable except as noted in HPI and below PMFSH Past Medical History Medical History Obesity Bipolar disorder Hypertension Anxiety Surgical History Surgical History History of tonsillectomy and adenoidectomy No pertinent past surgical history Family History Family History Mother Family history non-contributory Social History Social History Smoking status: Never smoker Substance use: current Substance use type: marijuana Living arrangements: alone Gender identity (if verbalized by the patient): Male Spiritual care concerns: No Comments At time of signature, agree with nursing past medical, surgical, social and family history. There is no relevant family history pertinent to the presenting complaint Exam Narrative: GENERAL: Well-appearing, well-nourished, obesity,and in no acute distress. HEAD: Normocephalic EYES: PERRLA, conjunctivae clear ENT: Nares clear, turbinates edematous and erythematous, clear discharge. Mucous membranes moist. TM pearly workman with dull light reflex bilaterally; no tragal tenderness. Oropharynx erythematous without lesions. Tonsils not present and throat without exudate, no drooling, no hoarseness, no trismus, uvula midline.post nasal drainage NECK: Supple. No lymphadenopathy CHEST: Clear to auscultation, breath sounds equal. No wheezing, rhonchi, rales, or stridor. No respiratory distress, speaks in full sentences.no acute cough noted HEART: Regular rate and rhythm. No murmur heard. SKIN: Warm, dry, no rash. NEURO: Alert and oriented x3. PSYCH: Normal mood and affect Course Course Emergency Course: Patient is aware of diagnosis, understands and agrees to treatment plan.? Anticipatory guidance given.? Patient agrees to follow-up as directed and is aware of reasons to seek care at the emergency department. Portions of this record may have been created with voice recognition software Level of Care: Express Care Visit Vital Signs Vital signs: Vital Signs Temperature 36.6 C 03/20/25 16:04 Pulse Rate 76 03/20/25 16:04 Respiratory Rate 18 03/20/25 16:04 Blood Pressure 136/89 03/20/25 16:04 Pulse Oximetry 99 03/20/25 16:04 Oxygen Delivery Room Air 03/20/25 16:04 Temperature 36.6 C 03/20/25 16:04 Pulse Rate 76 03/20/25 16:04 Respiratory Rate 18 03/20/25 16:04 Blood Pressure 136/89 03/20/25 16:04 Pulse Oximetry 99 03/20/25 16:04 Oxygen Delivery Room Air 03/20/25 16:04 Reviewed Medical Decision Making Differential Diagnosis Differential Diagnosis: URI, pharyngitis, strep pharyngitis, viral syndrome/infection Medical Records Medical records reviewed: Yes I reviewed the external patient's medical records. Vital Signs Vital Signs: Vital Signs Temperature 36.6 C 03/20/25 16:04 Pulse Rate 76 03/20/25 16:04 Respiratory Rate 18 03/20/25 16:04 Blood Pressure 136/89 03/20/25 16:04 Pulse Oximetry 99 03/20/25 16:04 Oxygen Delivery Room Air 03/20/25 16:04 Temperature 36.6 C 03/20/25 16:04 Pulse Rate 76 03/20/25 16:04 Respiratory Rate 18 03/20/25 16:04 Blood Pressure 136/89 03/20/25 16:04 Pulse Oximetry 99 03/20/25 16:04 Oxygen Delivery Room Air 03/20/25 16:04 reviewed Lab Data Lab results reviewed: Yes I reviewed the patient's lab results. Lab results narrative: strep screen negative, culture sent Labs: Lab Results 03/20/25 Range/Units 16:33 POC Grp A Strep Screen Negative (Negative) Critical Care Time Critical Care Time Critical Care Time: No Discharge Plan Discharge Clinical Impression: Upper respiratory infection Qualifiers: URI type: unspecified URI Qualified Code(s): J06.9 - Acute upper respiratory infection, unspecified Pharyngitis Qualifiers: Pharyngitis/tonsillitis etiology: unspecified etiology Qualified Code(s): J02.9 - Acute pharyngitis, unspecified Patient Disposition: Home Condition: Stable Instructions: Antibiotic Form, Upper Respiratory Infection (ED) Additional Instructions: Increase fluids especially juices and water [id number] cough and cold medicine of your choice for your symptoms Zyrtec Claritin or Danuta daily include Coricidin brand decongestant Tylenol for fever pain heat to the face 20-30 minutes 4-6 times a day for pain Salt water gargles, throat lozenges or throat sprays as desired Your strep test today was negative. A throat culture will be sent to the laboratory for further testing. IF the test is positive, you will receive a phone call within 48 hours and an appropriate antibiotic will be initiated at that time. If your symptoms persist, change or worsen significantly before you can contact your personal physician then please, without delay, go to the emergency department for further evaluation. Follow-up with PCP in 7-10 days or sooner if needed Follow up with PCP soon in regards to your blood pressure which is elevated above threshold for referral. Blood pressure above 120/80 may indicate pre-hypertension. 136/89 Patient Language: Estonian Prescriptions: No Action citalopram 20 mg tablet 20 mg PO DAILY amlodipine 10 mg tablet 10 mg PO DAILY atorvastatin 10 mg tablet citalopram 10 mg tablet 10 mg PO DAILY Follow-up/Referrals: Amy,JOSE ALEJANDRO Mcintyre [Primary Care Provider, Unknown] Stand Alone Forms: Work/School Release IP Time of Disposition: 16:45 Quality Amaury Coma Scale Eyes: Open Verbal: Oriented and Alert Motor: Follows Commands Diamond Coma Total Score: 15
[2025-03-20 16:35] LABS: EDSTREPNEGPOS1 Negative (Negative)
== END 2025-03-20 16:49 | disposition home or self-care (01) ==
PROVIDERS: Emergency Provider Registered Nurse; PCP Physician Assistant
DX: J06.9 Acute upper respiratory infection, unspecified (principal); J02.9 Acute pharyngitis, unspecified; I10 Essential (primary) hypertension; E66.9 Obesity, unspecified; Z68.42 Body mass index [BMI] 45.0-49.9, adult; F41.9 Anxiety disorder, unspecified; F12.90 Cannabis use, unspecified, uncomplicated
CPT/HCPCS: 87081; 87880; 99213; G0463